=== PATIENT | female | born 2000 | race Caucasian/White ===

== ENCOUNTER 2018-01-26 10:47 | Day surgery (SDC) | END 2018-01-26 16:45 | disposition home or self-care (01) ==

== ENCOUNTER 2018-08-10 08:44 | Emergency (ER) | END 2018-08-10 09:49 | disposition home or self-care (01) ==

== ENCOUNTER 2018-08-12 19:35 | Emergency (ER) | END 2018-08-12 23:00 | disposition home or self-care (01) ==

== ENCOUNTER 2019-05-19 19:53 | Emergency (ER) | payer OTHER ==
[~2019-05-19] VITALS: Ht 157.5 cm; Wt 48.9 kg
[~2019-05-19 19:53] MED LIST: ACET500C5 PO; IBUP-1542 PO; LIPA1CAP4 PO; NITR-58 PO; PANT40TA3 PO
[2019-05-19 19:55] VITALS: Ht 157.5 cm; Wt 48.9 kg
[2019-05-19] MEDS ORDERED: PENICILLIN G BENZ 1.2 MIL UNIT SYG IM ONE (20:30)
[2019-05-19 20:37] VITALS: BP 124/73; PULSE 88; RESP 19
== END 2019-05-19 20:51 | disposition home or self-care (01) ==
LOC: FTE 19:53
DX: J02.0 Streptococcal pharyngitis (principal)
CPT/HCPCS: 96372; J0561; Z7502